=== PATIENT | male | born 1930 | race Caucasian/White ===

== ENCOUNTER 2020-08-01 10:36 | Emergency (ER) | payer MEDICARE, OTHER ==
[~2020-08-01] VITALS: Ht 185.4 cm; Wt 106.8 kg
[~2020-08-01 10:36] MED LIST: ACET-890 PO; CITA20TA28 PO; DOCU-28 PO; ENOX100S3 SUBCUT; FAMO40TA73 PO; FENO135C3 PO; FINA1TAB11 PO; IBUP100T33 PO; LISI-222 PO; METF500T PO; MONT10TA21 PO; OMEP-84 PO; PIOG30TA2 PO; QUET-1 PO; WARF10TA50 PO
[2020-08-01] MEDS ORDERED: oxyCODONE/APAP 5-325mg tablet PO ONE (10:50)
[2020-08-01] MEDS ORDERED: ketorolac trometh. 30mg/ml inj. IM ONE (10:50)
[2020-08-01 10:51] VITALS: BP 110/61
[2020-08-01] MEDS ORDERED: diazepam 5mg tablet PO ONE (11:50)
--- NOTE | 2020-08-01 12:22 | NUR ---
Pt returned from CT.
--- NOTE | 2020-08-01 12:38 | NUR ---
Spoke with , notified that there are no open ST beds available at this time, could make home health referral
[2020-08-01 13:16] LABS: EOSINOPHILS # (AUTO) 0.1 X10'3 (0-0.9); LYMPHOCYTES # (AUTO) 0.7 X10'3 (1.1-4.8)
[2020-08-01 13:18] LABS: BASOPHILS % (AUTO) 0.7 % (0-1); EOSINOPHILS % (AUTO) 1.3 % (0-6); HEMATOCRIT 38.5 % (42.0-52.0); HEMOGLOBIN 12.9 g/dl (14.0-17.9); LYMPHOCYTES % (AUTO) 11.3 % (21-51); MEAN CORPUSCULAR HEMOGLOBIN 30.6 PG (27.0-31.0); MEAN CORPUSCULAR HGB CONC 33.5 g/dL (33.0-36.5); MEAN CORPUSCULAR VOLUME 91.4 FL (78-98); MEAN PLATELET VOLUME 8.7 FL (7.4-10.4); MONOCYTES # (AUTO) 0.6 X10'3 (0-0.9); MONOCYTES % (AUTO) 9.2 % (2-12); NEUTROPHILS # (AUTO) 4.8 X10'3 (1.8-7.7); NEUTROPHILS % (AUTO) 77.5 % (42-75); PLATELET COUNT 142 X10'3 (140-440); RED BLOOD COUNT 4.22 X10'6 (4.70-6.10); RED CELL DISTRIBUTION WIDTH 14.2 % (11.5-14.5); WHITE BLOOD COUNT 6.2 X10'3 (4.5-11.0)
[2020-08-01 13:25] LABS: ALBUMIN 3.5 G/DL (3.4-5.0); ANION GAP 8 (8-16); BLOOD UREA NITROGEN 30 MG/DL (7-18); BUN/CREATININE RATIO 21.4 (5.4-32.0); CHLORIDE 106 MMOL/L (99-107); GLUCOSE 127 MG/DL (70-104); POTASSIUM 4.4 MMOL/L (3.5-5.1); SODIUM 141 MMOL/L (135-145); TOTAL CARBON DIOXIDE 27.4 MMOL/L (24-32); eGFR 48 ML/MIN
--- NOTE | 2020-08-01 14:08 | NUR ---
Spoke with caregiver Liberty, states that yesterday patient was unable to get up or stand and that every few years this happens that patient back goes out, states that patient did not have fall, she is his day time caregiver and also has a night time caregiver, states that patient is large and she is unable to move him, and took three paramedics to move him for transport, explained that at this time there are no [facility] beds available and home health can be ordered, explained that patient has 4 steps and if patient can not walk then she can not get him up those steps, noted patient had Toradol injection, spoke with primary nurse, states that patient is unable to pass mobility screening and can not sit up in bed, page sent to PT for bedside eval
[2020-08-01] MEDS ORDERED: OXYC-145 PO (14:29)
--- NOTE | 2020-08-01 14:49 | NUR ---
Pt able to stand and walk with walker without assistance. Pt feels he is able to go home.
[2020-08-01 15:13] LABS: CLARITY,URINE CLEAR (Clear); COLOR,URINE YELLOW (Yellow); GLUCOSE, URINE NEGATIVE (Neg); KETONES,URINE TRACE mg/dl (Neg); LEUKOCYTE ESTERASE ,URINE NEGATIVE (Neg); NITRITES, URINE NEGATIVE (Neg); OCCULT BLOOD,URINE NEGATIVE (Neg); PH,URINE 5.5 (4.8-8.0); PROTEIN,URINE NEGATIVE (Neg); UROBILINOGEN,URINE 0.2 E.U/dL (0.2-1.0)
[2020-08-01 15:16] LABS: UA COLLECTION TYPE URINAL
== END 2020-08-01 14:50 | disposition home or self-care (01) ==
LOC: ER 10:37
DX: G89.29 Other chronic pain (principal); M54.5 Low back pain; E11.9 Type 2 diabetes mellitus without complications; Z79.899 Other long term (current) drug therapy
CPT/HCPCS: 36415; 72131; 80048; 81003; 85025; 96372; 99284; J1885

== ENCOUNTER 2020-08-11 15:43 | Inpatient (IN) | payer MEDICARE, OTHER ==
[~2020-08-11] VITALS: Ht 185.4 cm; Wt 106.8 kg
[~2020-08-11 15:43] MED LIST changes: +OXYC-145 PO
[2020-08-11] MEDS ORDERED: normal saline 1000ML IV soln IVB ONE (16:40)
[2020-08-11] MEDS ORDERED: ondansetron/PF 4mg/2ml inj IV ONE (16:40)
[2020-08-11] MEDS ORDERED: morphine 4 MG/ML inj SYRINge IV PRN (16:40)
[2020-08-11 17:35] LABS: BASOPHILS % (AUTO) 0.7 % (0-1); EOSINOPHILS # (AUTO) 0.2 X10'3 (0-0.9); EOSINOPHILS % (AUTO) 2.1 % (0-6); HEMATOCRIT 42.5 % (42.0-52.0); LYMPHOCYTES # (AUTO) 0.9 X10'3 (1.1-4.8); LYMPHOCYTES % (AUTO) 11.7 % (21-51); MEAN CORPUSCULAR HEMOGLOBIN 30.5 PG (27.0-31.0); MEAN CORPUSCULAR HGB CONC 32.9 g/dL (33.0-36.5); MEAN CORPUSCULAR VOLUME 92.7 FL (78-98); MEAN PLATELET VOLUME 8.9 FL (7.4-10.4); MONOCYTES # (AUTO) 0.6 X10'3 (0-0.9); MONOCYTES % (AUTO) 8.2 % (2-12); NEUTROPHILS # (AUTO) 5.7 X10'3 (1.8-7.7); NEUTROPHILS % (AUTO) 77.3 % (42-75); PLATELET COUNT 166 X10'3 (140-440); RED BLOOD COUNT 4.59 X10'6 (4.70-6.10); RED CELL DISTRIBUTION WIDTH 14.6 % (11.5-14.5); WHITE BLOOD COUNT 7.4 X10'3 (4.5-11.0)
--- NOTE | 2020-08-11 17:47 | NUR ---
to ct scan via gurney in stable condition.
[2020-08-11 17:50] LABS: ALANINE AMINOTRANSFERASE 26 U/L (12-78); ALBUMIN 3.8 G/DL (3.4-5.0); ALBUMIN/GLOBULIN RATIO 1.1 (1.1-1.5); ALKALINE PHOSPHATASE 86 IU/L (46-116); ANION GAP 13 (8-16); ASPARTATE AMINO TRANSFERASE 30 U/L (10-37); BILIRUBIN,TOTAL 0.4 MG/DL (0.1-1.0); BLOOD UREA NITROGEN 60 MG/DL (7-18); BUN/CREATININE RATIO 34.7 (5.4-32.0); CALCIUM 9.2 MG/DL (8.5-10.1); CHLORIDE 110 MMOL/L (99-107); CREATININE 1.73 MG/DL (0.60-1.10); GLUCOSE 192 MG/DL (70-104); POTASSIUM 4.8 MMOL/L (3.5-5.1); SODIUM 145 MMOL/L (135-145); TOTAL CARBON DIOXIDE 21.8 MMOL/L (24-32); TOTAL PROTEIN 7.3 G/DL (6.4-8.2); eGFR 38 ML/MIN
[2020-08-11] MEDS ORDERED: methylnaltrexone br 12mg/0.6ml inj***SubQ only SQ ONE (18:25)
[2020-08-11] MEDS ORDERED: morphine 2 MG/ML inj. syringe IV ONE (18:30)
[2020-08-11 19:23] LABS: CLARITY,URINE CLEAR (Clear); COLOR,URINE YELLOW (Yellow); GLUCOSE, URINE NEGATIVE (Neg); KETONES,URINE 15 mg/dl (Neg); LEUKOCYTE ESTERASE ,URINE NEGATIVE (Neg); NITRITES, URINE NEGATIVE (Neg); OCCULT BLOOD,URINE NEGATIVE (Neg); PH,URINE 5.5 (4.8-8.0); PROTEIN,URINE NEGATIVE (Neg); UROBILINOGEN,URINE 0.2 E.U/dL (0.2-1.0)
[2020-08-11 19:25] LABS: UA COLLECTION TYPE CLN CATCH MIDSTREAM
--- NOTE | 2020-08-11 19:56 | NUR ---
Pt refused to stand and walk, he reports his legs are not strong enough to stand and walk.
[2020-08-11] MEDS ORDERED: glucagon, human recombinant 1mg kit SUBCUT PRN (20:35)
[2020-08-11] MEDS ORDERED: morphine 2 MG/ML inj. syringe IV PRN ×2 (20:35)
[2020-08-11] MEDS ORDERED: mag hydrox/Alum hydrox/simeth 30ml oral suspension PO PRN (20:35)
[2020-08-11] MEDS ORDERED: dextrose ORAL solution 15 GM/59 ML bottle PO PRN (20:35)
[2020-08-11] MEDS ORDERED: ondansetron/PF 4mg/2ml inj IV PRN (20:35)
[2020-08-11] MEDS ORDERED: MESSAGE TO PHARMACY PO ONE (20:35)
[2020-08-11] MEDS ORDERED: acetaminophen 325mg tablet PO PRN (20:35)
[2020-08-11] MEDS ORDERED: dextrose 50%-water 50ml dispensing syringe IV PRN ×2 (20:35)
--- NOTE | 2020-08-11 21:27 | NUR ---
Pt's daughter, next of kin phoned and left her number where she can be reached. Addendum: 08/11/20 at 7 by CHRISTINA Dara's number is [phone].
[2020-08-11 21:37] LABS: HEMOGLOBIN A1C 7.2 % (4.5-6.2)
[2020-08-11] MEDS ORDERED: HUM7525 SQ (22:12)
[2020-08-11] MEDS ORDERED: ALTERIL PO (22:12)
[2020-08-11] MEDS ORDERED: APIX2.5T PO (22:12)
[2020-08-11] MEDS ORDERED: ATEN1TAB4 PO (22:12)
[2020-08-11] MEDS ORDERED: FINA5TAB11 PO (22:12)
[2020-08-11] MEDS ORDERED: AMLO2.5T2 PO (22:12)
[2020-08-11] MEDS ORDERED: ATOR40TA PO (22:12)
[2020-08-11] MEDS ORDERED: CHOL400T57 PO (22:12)
[2020-08-11] MEDS ORDERED: FLO0.4C PO (22:12)
[2020-08-11] MEDS ORDERED: OXYC-145 PO (22:12)
[2020-08-11] MEDS ORDERED: CYAN250010 PO (22:12)
[2020-08-11] MEDS ORDERED: INSU100I25 SQ (22:12)
[2020-08-11] MEDS ORDERED: CLOP75TA15 PO (22:12)
[2020-08-11] MEDS ORDERED: LOSA25TA96 PO (22:12)
[2020-08-11] MEDS: insulin glargine (Lantus) pen - multi-dose SQ SCH (22:41)
[2020-08-12 03:33] VITALS: BP 141/92
--- NOTE | 2020-08-12 06:27 | NUR ---
Problems reprioritized. Patient report given, questions answered & plan of care reviewed with Alea PENA.
--- NOTE | 2020-08-12 06:54 | NUR ---
Patient in room [facility] 358. I have received report from Kristyn PENA and had the opportunity to ask questions and assume patient care.
[2020-08-12 07:00] VITALS: BP 149/86
[2020-08-12] MEDS: cyanocobalamin 500mcg tablet PO SCH ×2 (08:00→09:48)
[2020-08-12] MEDS: amLODIPine 2.5mg tablet PO SCH (09:48)
[2020-08-12] MEDS: tamsulosin 0.4mg capsule PO SCH ×2 (09:49→19:17)
[2020-08-12] MEDS: losartan 50mg tablet PO SCH (09:49)
[2020-08-12] MEDS: chlorthalidone 25mg tablet PO SCH (09:49)
[2020-08-12] MEDS: clopidogrel 75mg tablet PO SCH (09:50)
[2020-08-12] MEDS: atorvastatin 20mg tablet PO SCH (09:50)
[2020-08-12] MEDS: apixaban 2.5mg tablet PO SCH ×2 (09:50→19:17)
[2020-08-12] MEDS: atenolol 50mg tablet PO SCH (09:51)
[2020-08-12] MEDS: docusate sod 100mg capsule PO SCH ×2 (09:52→19:17)
[2020-08-12] MEDS: finasteride 5mg tablet PO SCH (09:53)
--- NOTE | 2020-08-12 10:00 | NUR ---
Pt confused, reoriented and reeducated with brief understanding, resistive to care and assessment, impulsive to get out of bed, refused Vit B12, MD aware. Will continue to monitor.
[2020-08-12] MEDS: insulin Lispro (HumaLOG) vial - multi-dose SQ SCH ×4 (10:06→21:23)
[2020-08-12] MEDS: magnesium hydroxide 30ml (MOM) UD suspension PO PRN (10:11)
[2020-08-12] MEDS: HYDROcodone/acetaminophen 5mg/325mg tablet PO PRN ×3 (10:12→23:26)
[2020-08-12 12:00] VITALS: BP 131/63
[2020-08-12 13:05] LABS: ALBUMIN 3.7 G/DL (3.4-5.0); ANION GAP 7 (8-16); BILIRUBIN,TOTAL 0.5 MG/DL (0.1-1.0); BLOOD UREA NITROGEN 46 MG/DL (7-18); BUN/CREATININE RATIO 32.2 (5.4-32.0); CALCIUM 9.2 MG/DL (8.5-10.1); CHLORIDE 111 MMOL/L (99-107); CREATININE 1.43 MG/DL (0.60-1.10); GLUCOSE 238 MG/DL (70-104); SODIUM 146 MMOL/L (135-145); TOTAL CARBON DIOXIDE 27.9 MMOL/L (24-32); TOTAL PROTEIN 7.1 G/DL (6.4-8.2); eGFR 47 ML/MIN
[2020-08-12 13:06] LABS: ALANINE AMINOTRANSFERASE 26 U/L (12-78); ALBUMIN/GLOBULIN RATIO 1.1 (1.1-1.5); ALKALINE PHOSPHATASE 86 IU/L (46-116); ASPARTATE AMINO TRANSFERASE 31 U/L (10-37)
[2020-08-12 13:07] LABS: BASOPHILS % (AUTO) 0.7 % (0-1); EOSINOPHILS # (AUTO) 0.1 X10'3 (0-0.9); EOSINOPHILS % (AUTO) 1.1 % (0-6); HEMATOCRIT 42.3 % (42.0-52.0); HEMOGLOBIN 13.9 g/dl (14.0-17.9); LYMPHOCYTES # (AUTO) 0.5 X10'3 (1.1-4.8); LYMPHOCYTES % (AUTO) 7.8 % (21-51); MEAN CORPUSCULAR HGB CONC 32.8 g/dL (33.0-36.5); MEAN CORPUSCULAR VOLUME 91.3 FL (78-98); MEAN PLATELET VOLUME 8.5 FL (7.4-10.4); MONOCYTES # (AUTO) 0.6 X10'3 (0-0.9); MONOCYTES % (AUTO) 8.4 % (2-12); NEUTROPHILS # (AUTO) 5.7 X10'3 (1.8-7.7); PLATELET COUNT 177 X10'3 (140-440); RED BLOOD COUNT 4.63 X10'6 (4.70-6.10); RED CELL DISTRIBUTION WIDTH 14.7 % (11.5-14.5); WHITE BLOOD COUNT 6.9 X10'3 (4.5-11.0)
--- NOTE | 2020-08-12 14:31 | NUR ---
DM Consult: A1C 7.2 appropriate given geriatric age no need for DM ed at this time. To f/u 08/16 for initial assessment. Addendum: 08/12/20 at [address] Amended: Links added.
--- NOTE | 2020-08-12 17:45 | NUR ---
Spoke with daughter aDra per phone call with pt's permission, dtr states pt had Cardiac stents placed approx Apr 2020 at [facility].
[2020-08-12 18:00] VITALS: BP 120/77
--- NOTE | 2020-08-12 18:31 | NUR ---
Problems reprioritized. Patient report given, questions answered & plan of care reviewed with Kristyn PENA.
--- NOTE | 2020-08-12 18:32 | NUR ---
Patient in room [facility] 358. I have received report from Alea PENA and had the opportunity to ask questions and assume patient care.
--- NOTE | 2020-08-12 18:39 | NUR ---
PAGER ID: [phone] MESSAGE: re: [id number], Carlos Teixeira Making sure you are aware, spoke with daughter Dara per phone call and she states pt has cardiac stents, placed approx. Apr 2020 at [facility]. Thank you, [facility] [phone]
[2020-08-12] MEDS: insulin glargine (Lantus) pen - multi-dose SQ SCH (21:21)
[2020-08-13] VITALS: BP 111/60
[2020-08-13 06:53] LABS: BASOPHILS % (AUTO) 0.4 % (0-1); EOSINOPHILS # (AUTO) 0.1 X10'3 (0-0.9); EOSINOPHILS % (AUTO) 1.1 % (0-6); HEMATOCRIT 39.4 % (42.0-52.0); HEMOGLOBIN 13.1 g/dl (14.0-17.9); LYMPHOCYTES # (AUTO) 0.7 X10'3 (1.1-4.8); LYMPHOCYTES % (AUTO) 7.9 % (21-51); MEAN CORPUSCULAR HEMOGLOBIN 30.9 PG (27.0-31.0); MEAN CORPUSCULAR HGB CONC 33.4 g/dL (33.0-36.5); MEAN CORPUSCULAR VOLUME 92.6 FL (78-98); MONOCYTES # (AUTO) 0.7 X10'3 (0-0.9); MONOCYTES % (AUTO) 7.1 % (2-12); NEUTROPHILS # (AUTO) 7.9 X10'3 (1.8-7.7); NEUTROPHILS % (AUTO) 83.5 % (42-75); PLATELET COUNT 161 X10'3 (140-440); RED BLOOD COUNT 4.25 X10'6 (4.70-6.10); WHITE BLOOD COUNT 9.4 X10'3 (4.5-11.0)
[2020-08-13 07:00] VITALS: BP 116/64
--- NOTE | 2020-08-13 07:06 | NUR ---
Patient in room [facility] 358. I have received report from Kristyn PENA and had the opportunity to ask questions and assume patient care.
[2020-08-13 07:08] LABS: ALBUMIN 3.4 G/DL (3.4-5.0); ANION GAP 9 (8-16); BILIRUBIN,TOTAL 0.4 MG/DL (0.1-1.0); BLOOD UREA NITROGEN 54 MG/DL (7-18); BUN/CREATININE RATIO 33.1 (5.4-32.0); CALCIUM 8.9 MG/DL (8.5-10.1); CHLORIDE 110 MMOL/L (99-107); CREATININE 1.63 MG/DL (0.60-1.10); GLUCOSE 239 MG/DL (70-104); POTASSIUM 4.4 MMOL/L (3.5-5.1); SODIUM 143 MMOL/L (135-145); TOTAL PROTEIN 6.7 G/DL (6.4-8.2); eGFR 40 ML/MIN
[2020-08-13 07:09] LABS: ALANINE AMINOTRANSFERASE 25 U/L (12-78); ALKALINE PHOSPHATASE 82 IU/L (46-116); ASPARTATE AMINO TRANSFERASE 28 U/L (10-37)
[2020-08-13] MEDS: atorvastatin 20mg tablet PO SCH (08:38)
[2020-08-13] MEDS: tamsulosin 0.4mg capsule PO SCH ×2 (08:38→22:32)
[2020-08-13] MEDS: clopidogrel 75mg tablet PO SCH (08:38)
[2020-08-13] MEDS: atenolol 50mg tablet PO SCH (08:39)
[2020-08-13] MEDS: chlorthalidone 25mg tablet PO SCH (08:39)
[2020-08-13] MEDS: amLODIPine 2.5mg tablet PO SCH (08:39)
[2020-08-13] MEDS: cyanocobalamin 500mcg tablet PO SCH (08:39)
[2020-08-13] MEDS: apixaban 2.5mg tablet PO SCH ×2 (08:39→22:32)
[2020-08-13] MEDS: docusate sod 100mg capsule PO SCH ×2 (08:40→22:32)
[2020-08-13] MEDS: finasteride 5mg tablet PO SCH (08:40)
[2020-08-13] MEDS: HYDROcodone/acetaminophen 10/325mg tab PO PRN (08:40)
[2020-08-13] MEDS: losartan 50mg tablet PO SCH (08:41)
[2020-08-13] MEDS: insulin Lispro (HumaLOG) vial - multi-dose SQ SCH ×2 (09:27→20:38)
[2020-08-13 11:00] VITALS: BP 67/41
[2020-08-13 11:15] VITALS: BP 90/60
--- NOTE | 2020-08-13 11:51 | NUR ---
PAGER ID: [phone] MESSAGE: [facility] [id number] Re: Puneet HernandezA BP was 69/28 HR 83 automatic , manual BP 90/60 please call Addendum: 08/13/20 at 1202 by Belle Marvin RN Received orders to DC Chlorthalidone medication
--- NOTE | 2020-08-13 16:38 | NUR ---
Tried to call daughter Dara twice while patient was sitting up in the chair. Dara does not have voice mail set up unable to leave message. Called [phone]
[2020-08-13] MEDS: HYDROcodone/acetaminophen 5mg/325mg tablet PO PRN (16:53)
[2020-08-13 17:03] VITALS: BP 135/87
--- NOTE | 2020-08-13 18:59 | NUR ---
Problems reprioritized. Patient report given, questions answered & plan of care reviewed with Cee Mike RN.
--- NOTE | 2020-08-13 19:00 | NUR ---
Patient in room [facility] 358. I have received report from FRANDY PENA and had the opportunity to ask questions and assume patient care.
[2020-08-13 20:00] VITALS: BP 125/83
[2020-08-13] MEDS: insulin glargine (Lantus) pen - multi-dose SQ SCH (22:33)
[2020-08-14] VITALS: BP 129/81
[2020-08-14 06:30] VITALS: BP 143/65
--- NOTE | 2020-08-14 06:30 | NUR ---
Problems reprioritized. Patient report given, questions answered & plan of care reviewed with FLOR RN.
--- NOTE | 2020-08-14 06:40 | NUR ---
Patient in room [facility] 358. I have received report from Cee Mike RN and had the opportunity to ask questions and assume patient care.
[2020-08-14 07:05] LABS: BASOPHILS % (AUTO) 0.4 % (0-1); EOSINOPHILS # (AUTO) 0.2 X10'3 (0-0.9); EOSINOPHILS % (AUTO) 2.3 % (0-6); HEMATOCRIT 41.1 % (42.0-52.0); HEMOGLOBIN 13.9 g/dl (14.0-17.9); LYMPHOCYTES # (AUTO) 0.8 X10'3 (1.1-4.8); LYMPHOCYTES % (AUTO) 10.3 % (21-51); MEAN CORPUSCULAR HEMOGLOBIN 30.9 PG (27.0-31.0); MEAN CORPUSCULAR HGB CONC 33.8 g/dL (33.0-36.5); MEAN CORPUSCULAR VOLUME 91.5 FL (78-98); MEAN PLATELET VOLUME 8.8 FL (7.4-10.4); MONOCYTES # (AUTO) 0.6 X10'3 (0-0.9); MONOCYTES % (AUTO) 7.4 % (2-12); NEUTROPHILS # (AUTO) 6.1 X10'3 (1.8-7.7); NEUTROPHILS % (AUTO) 79.6 % (42-75); PLATELET COUNT 173 X10'3 (140-440); RED BLOOD COUNT 4.49 X10'6 (4.70-6.10); RED CELL DISTRIBUTION WIDTH 14.7 % (11.5-14.5); WHITE BLOOD COUNT 7.7 X10'3 (4.5-11.0)
[2020-08-14 07:14] LABS: ALANINE AMINOTRANSFERASE 28 U/L (12-78); ALBUMIN 3.5 G/DL (3.4-5.0); ALBUMIN/GLOBULIN RATIO 1.1 (1.1-1.5); ALKALINE PHOSPHATASE 79 IU/L (46-116); ANION GAP 11 (8-16); ASPARTATE AMINO TRANSFERASE 34 U/L (10-37); BILIRUBIN,TOTAL 0.5 MG/DL (0.1-1.0); BLOOD UREA NITROGEN 55 MG/DL (7-18); BUN/CREATININE RATIO 36.7 (5.4-32.0); CALCIUM 9.2 MG/DL (8.5-10.1); CHLORIDE 110 MMOL/L (99-107); GLUCOSE 135 MG/DL (70-104); POTASSIUM 4.4 MMOL/L (3.5-5.1); SODIUM 146 MMOL/L (135-145); TOTAL CARBON DIOXIDE 24.9 MMOL/L (24-32); TOTAL PROTEIN 6.8 G/DL (6.4-8.2); eGFR 44 ML/MIN
[2020-08-14] MEDS: atorvastatin 20mg tablet PO SCH (10:39)
[2020-08-14] MEDS: losartan 50mg tablet PO SCH (10:40)
[2020-08-14] MEDS: atenolol 50mg tablet PO SCH (10:40)
[2020-08-14] MEDS: finasteride 5mg tablet PO SCH (10:40)
[2020-08-14] MEDS: docusate sod 100mg capsule PO SCH ×2 (10:40→20:13)
[2020-08-14] MEDS: tamsulosin 0.4mg capsule PO SCH ×2 (10:41→20:13)
[2020-08-14] MEDS: cyanocobalamin 500mcg tablet PO SCH (10:41)
[2020-08-14] MEDS: amLODIPine 2.5mg tablet PO SCH (10:41)
[2020-08-14] MEDS: apixaban 2.5mg tablet PO SCH ×2 (10:41→20:13)
[2020-08-14] MEDS: clopidogrel 75mg tablet PO SCH (10:41)
[2020-08-14] MEDS: insulin Lispro (HumaLOG) vial - multi-dose SQ SCH ×2 (10:44→13:08)
[2020-08-14 11:00] VITALS: BP 126/65
[2020-08-14] MEDS: HYDROcodone/acetaminophen 10/325mg tab PO PRN ×2 (12:38→20:14)
--- NOTE | 2020-08-14 18:00 | NUR ---
Received phone call from pt's daughter, Dara, whom expressed several concerns about pt's mentation (Pt does not have hx of dementia/confusion/disorientation), back pain/prior treatment for back pain which was on a disc that she states they brought here & had a copy made for MD review & pt's record. Pt requested call from . Dr Warner notified who called back to notify nursing that he was unable to get a hold of Dara.
--- NOTE | 2020-08-14 18:30 | NUR ---
Problems reprioritized. Patient report given, questions answered & plan of care reviewed with Cee Mkie RN.
--- NOTE | 2020-08-14 18:40 | NUR ---
Patient in room [facility] 358. I have received report from FLOR PENA and had the opportunity to ask questions and assume patient care.
[2020-08-14 20:00] VITALS: BP 140/59
[2020-08-14] MEDS: insulin glargine (Lantus) pen - multi-dose SQ SCH (21:53)
[2020-08-15] VITALS (12 sets, daily range): BP systolic 103–169; BP diastolic 32–77
--- NOTE | 2020-08-15 06:20 | NUR ---
Patient in room [facility] 358. I have received report from Cee Mike RN and had the opportunity to ask questions and assume patient care.
--- NOTE | 2020-08-15 06:30 | NUR ---
Problems reprioritized. Patient report given, questions answered & plan of care reviewed with FLOR RN.
--- NOTE | 2020-08-15 08:13 | NUR ---
Sound Effects Manager notified of MD ordered sitter. Sound Effects Manager states no sitter available.
[2020-08-15 08:24] LABS: BASOPHILS % (AUTO) 0.2 % (0-1); EOSINOPHILS # (AUTO) 0.1 X10'3 (0-0.9); EOSINOPHILS % (AUTO) 0.7 % (0-6); HEMATOCRIT 43.2 % (42.0-52.0); HEMOGLOBIN 14.3 g/dl (14.0-17.9); LYMPHOCYTES # (AUTO) 0.6 X10'3 (1.1-4.8); LYMPHOCYTES % (AUTO) 6.6 % (21-51); MEAN CORPUSCULAR HEMOGLOBIN 30.8 PG (27.0-31.0); MEAN CORPUSCULAR HGB CONC 33.1 g/dL (33.0-36.5); MEAN PLATELET VOLUME 9.4 FL (7.4-10.4); MONOCYTES # (AUTO) 0.6 X10'3 (0-0.9); MONOCYTES % (AUTO) 6.1 % (2-12); NEUTROPHILS # (AUTO) 7.9 X10'3 (1.8-7.7); NEUTROPHILS % (AUTO) 86.4 % (42-75); PLATELET COUNT 162 X10'3 (140-440); RED BLOOD COUNT 4.65 X10'6 (4.70-6.10); RED CELL DISTRIBUTION WIDTH 14.8 % (11.5-14.5); WHITE BLOOD COUNT 9.2 X10'3 (4.5-11.0)
[2020-08-15 08:27] LABS: ALANINE AMINOTRANSFERASE 28 U/L (12-78); ALBUMIN 3.6 G/DL (3.4-5.0); ALKALINE PHOSPHATASE 87 IU/L (46-116); ANION GAP 10 (8-16); ASPARTATE AMINO TRANSFERASE 27 U/L (10-37); BILIRUBIN,TOTAL 0.5 MG/DL (0.1-1.0); BLOOD UREA NITROGEN 63 MG/DL (7-18); BUN/CREATININE RATIO 35.2 (5.4-32.0); CHLORIDE 107 MMOL/L (99-107); CREATININE 1.79 MG/DL (0.60-1.10); GLUCOSE 224 MG/DL (70-104); POTASSIUM 4.9 MMOL/L (3.5-5.1); SODIUM 141 MMOL/L (135-145); TOTAL CARBON DIOXIDE 24.3 MMOL/L (24-32); TOTAL PROTEIN 7.2 G/DL (6.4-8.2); eGFR 36 ML/MIN
[2020-08-15] MEDS: atenolol 50mg tablet PO SCH (10:14)
[2020-08-15] MEDS: apixaban 2.5mg tablet PO SCH ×2 (10:14→21:59)
[2020-08-15] MEDS: docusate sod 100mg capsule PO SCH ×2 (10:14→21:59)
[2020-08-15] MEDS: amLODIPine 2.5mg tablet PO SCH (10:14)
[2020-08-15] MEDS: losartan 50mg tablet PO SCH (10:14)
[2020-08-15] MEDS: HYDROcodone/acetaminophen 10/325mg tab PO PRN (10:15)
[2020-08-15] MEDS: atorvastatin 20mg tablet PO SCH (10:15)
[2020-08-15] MEDS: tamsulosin 0.4mg capsule PO SCH ×2 (10:15→21:58)
[2020-08-15] MEDS: finasteride 5mg tablet PO SCH (10:15)
[2020-08-15] MEDS: cyanocobalamin 500mcg tablet PO SCH (10:15)
[2020-08-15] MEDS: clopidogrel 75mg tablet PO SCH (10:15)
[2020-08-15] MEDS: insulin Lispro (HumaLOG) vial - multi-dose SQ SCH ×2 (10:24→13:51)
[2020-08-15] MEDS: LIDOcaine 5% patch TP SCH (13:39)
[2020-08-15 13:56] LABS: AMMONIA < 10 UMOL/L (11-32)
--- NOTE | 2020-08-15 19:00 | NUR ---
Problems reprioritized. Patient report given, questions answered & plan of care reviewed with Yamilet RN.
--- NOTE | 2020-08-15 19:30 | NUR ---
moans when repositioned; unable to state number of pain level or describe pain; lidoderm patch on to back; calm after repositioned for comfort Addendum: 08/16/20 at 0122 by Carol Lopez RN Amended: Links added.
[2020-08-15] MEDS: insulin glargine (Lantus) pen - multi-dose SQ SCH (22:09)
[2020-08-16] VITALS: BP 129/46
--- NOTE | 2020-08-16 06:00 | NUR ---
Patient in room [facility] 358. I have received report from JEAN Woodard and had the opportunity to ask questions and assume patient care.
[2020-08-16 06:06] LABS: BASOPHILS % (AUTO) 0.4 % (0-1); EOSINOPHILS # (AUTO) 0.1 X10'3 (0-0.9); EOSINOPHILS % (AUTO) 1.3 % (0-6); HEMATOCRIT 41.1 % (42.0-52.0); HEMOGLOBIN 13.8 g/dl (14.0-17.9); LYMPHOCYTES # (AUTO) 0.7 X10'3 (1.1-4.8); LYMPHOCYTES % (AUTO) 8.6 % (21-51); MEAN CORPUSCULAR HEMOGLOBIN 30.9 PG (27.0-31.0); MEAN CORPUSCULAR HGB CONC 33.6 g/dL (33.0-36.5); MEAN PLATELET VOLUME 9.1 FL (7.4-10.4); MONOCYTES # (AUTO) 0.6 X10'3 (0-0.9); MONOCYTES % (AUTO) 7.8 % (2-12); NEUTROPHILS # (AUTO) 6.4 X10'3 (1.8-7.7); NEUTROPHILS % (AUTO) 81.9 % (42-75); PLATELET COUNT 172 X10'3 (140-440); RED BLOOD COUNT 4.46 X10'6 (4.70-6.10); RED CELL DISTRIBUTION WIDTH 14.6 % (11.5-14.5); WHITE BLOOD COUNT 7.8 X10'3 (4.5-11.0)
[2020-08-16 06:25] LABS: ALANINE AMINOTRANSFERASE 28 U/L (12-78); ALBUMIN 3.4 G/DL (3.4-5.0); ALKALINE PHOSPHATASE 82 IU/L (46-116); ANION GAP 9 (8-16); ASPARTATE AMINO TRANSFERASE 30 U/L (10-37); BILIRUBIN,TOTAL 0.4 MG/DL (0.1-1.0); BLOOD UREA NITROGEN 63 MG/DL (7-18); BUN/CREATININE RATIO 39.4 (5.4-32.0); CALCIUM 8.9 MG/DL (8.5-10.1); CHLORIDE 107 MMOL/L (99-107); GLUCOSE 223 MG/DL (70-104); POTASSIUM 4.2 MMOL/L (3.5-5.1); SODIUM 141 MMOL/L (135-145); TOTAL CARBON DIOXIDE 24.7 MMOL/L (24-32); TOTAL PROTEIN 6.9 G/DL (6.4-8.2); eGFR 41 ML/MIN
[2020-08-16 07:00] VITALS: BP 131/47
[2020-08-16] MEDS: amLODIPine 2.5mg tablet PO SCH (08:00)
[2020-08-16] MEDS: tamsulosin 0.4mg capsule PO SCH ×2 (08:56→20:09)
[2020-08-16] MEDS: atenolol 50mg tablet PO SCH (08:58)
[2020-08-16] MEDS: clopidogrel 75mg tablet PO SCH (08:58)
[2020-08-16] MEDS: finasteride 5mg tablet PO SCH (08:58)
[2020-08-16] MEDS: losartan 50mg tablet PO SCH (08:58)
[2020-08-16] MEDS: apixaban 2.5mg tablet PO SCH ×2 (08:58→20:09)
[2020-08-16] MEDS: atorvastatin 20mg tablet PO SCH (08:58)
[2020-08-16] MEDS: docusate sod 100mg capsule PO SCH ×2 (08:58→20:09)
[2020-08-16] MEDS: cyanocobalamin 500mcg tablet PO SCH (08:59)
[2020-08-16] MEDS: LIDOcaine 5% patch TP SCH (08:59)
[2020-08-16] MEDS: insulin Lispro (HumaLOG) vial - multi-dose SQ SCH ×3 (09:15→19:42)
[2020-08-16 11:00] VITALS: BP 95/48
[2020-08-16] MEDS: bisacodyl 10mg suppository rectal RC ONE ×2 (11:25→12:15)
[2020-08-16] MEDS ORDERED: bisacodyl 10mg suppository rectal RC STA (12:18)
--- NOTE | 2020-08-16 12:20 | NUR ---
Suppository broke prior to placement, had to reorder to pull.
--- NOTE | 2020-08-16 14:35 | NUR ---
Initial: Patient had KUB done today, revealed moderate to significant colonic constipation, no evidence of bowel obstruction. Pt received dulcolax. Last BM 08/12. Pt with some confusion, possible r/t morphine, morphine was stopped. Admitted with low back pain, acute renal failure, per MD note pt with metabolic encephalopathy. A/O x1. Pt appears to eat well for breakfast at times eating 75-100% however refusing most other meals, average intake range 25-49%, not meeting needs. Poor appetite likely r/t to both confusion and to constipation. Given that pt eats best at breakfast recommend sending double eggs and cottage cheese, d/w dietary. Recommend: 1. continue carb controlled diet 2. send double eggs and cottage cheese with breakfast 3. routine bowel care 4. weight per rx Addendum: 08/16/20 at [address] Amended: Links added.
--- NOTE | 2020-08-16 18:30 | NUR ---
Problems reprioritized. Patient report given, questions answered & plan of care reviewed with JEAN Davenport.
--- NOTE | 2020-08-16 18:34 | NUR ---
Patient in room [facility] 358. I have received report from DORIS PENA and had the opportunity to ask questions and assume patient care. Addendum: 08/16/20 at 1834 by Ethel Montoya RN Amended: Links added.
[2020-08-16 19:00] VITALS: BP 134/59
[2020-08-16] MEDS ORDERED: methylnaltrexone br 12mg/0.6ml inj***SubQ only SQ ONE (20:00)
[2020-08-16] MEDS: insulin glargine (Lantus) pen - multi-dose SQ SCH (21:18)
--- NOTE | 2020-08-16 21:44 | NUR ---
relistor given earlier as ordered and pt inc of stool small to medium amount grainy liquid and skin care done then cream applied pt tolerated fair lidoderm patch removed as well.
--- NOTE | 2020-08-16 22:30 | NUR ---
pt inc of a very large formed stool with grit to it and loose stool as well.
--- NOTE | 2020-08-16 23:00 | NUR ---
pt inc of stool and cleaned up again this time small to medium liquid with grit. tolerated well.
[2020-08-17] VITALS: BP 122/57
--- NOTE | 2020-08-17 01:05 | NUR ---
resting eyes closed without changes.
--- NOTE | 2020-08-17 06:00 | NUR ---
Patient in room [facility] 359. I have received report from JEAN Davenport and had the opportunity to ask questions and assume patient care.
--- NOTE | 2020-08-17 06:05 | NUR ---
Problems reprioritized. Patient report given, questions answered & plan of care reviewed with DORIS PENA. Addendum: 08/17/20 at 0606 by Ethel Montoya RN Amended: Links added.
[2020-08-17 07:00] VITALS: BP 142/65
[2020-08-17 07:42] LABS: BASOPHILS % (AUTO) 0.2 % (0-1); EOSINOPHILS % (AUTO) 0.4 % (0-6); HEMATOCRIT 42.6 % (42.0-52.0); HEMOGLOBIN 14.1 g/dl (14.0-17.9); LYMPHOCYTES # (AUTO) 0.5 X10'3 (1.1-4.8); LYMPHOCYTES % (AUTO) 5.5 % (21-51); MEAN CORPUSCULAR HEMOGLOBIN 30.4 PG (27.0-31.0); MEAN CORPUSCULAR HGB CONC 33.1 g/dL (33.0-36.5); MEAN PLATELET VOLUME 9.7 FL (7.4-10.4); MONOCYTES # (AUTO) 0.8 X10'3 (0-0.9); MONOCYTES % (AUTO) 7.9 % (2-12); NEUTROPHILS # (AUTO) 8.2 X10'3 (1.8-7.7); PLATELET COUNT 170 X10'3 (140-440); RED BLOOD COUNT 4.63 X10'6 (4.70-6.10); RED CELL DISTRIBUTION WIDTH 14.9 % (11.5-14.5); WHITE BLOOD COUNT 9.5 X10'3 (4.5-11.0)
[2020-08-17] MEDS: tamsulosin 0.4mg capsule PO SCH ×2 (07:52→19:58)
[2020-08-17] MEDS: docusate sod 100mg capsule PO SCH ×2 (07:52→19:58)
[2020-08-17] MEDS: LIDOcaine 5% patch TP SCH (07:52)
[2020-08-17] MEDS: amLODIPine 2.5mg tablet PO SCH (07:53)
[2020-08-17] MEDS: cyanocobalamin 500mcg tablet PO SCH (07:54)
[2020-08-17] MEDS: atorvastatin 20mg tablet PO SCH (07:54)
[2020-08-17] MEDS: apixaban 2.5mg tablet PO SCH ×2 (07:54→19:58)
[2020-08-17] MEDS: atenolol 50mg tablet PO SCH (07:55)
[2020-08-17 08:03] LABS: ALANINE AMINOTRANSFERASE 38 U/L (12-78); ALBUMIN 3.2 G/DL (3.4-5.0); ALBUMIN/GLOBULIN RATIO 0.9 (1.1-1.5); ALKALINE PHOSPHATASE 86 IU/L (46-116); ANION GAP 10 (8-16); ASPARTATE AMINO TRANSFERASE 51 U/L (10-37); BILIRUBIN,TOTAL 0.5 MG/DL (0.1-1.0); BLOOD UREA NITROGEN 67 MG/DL (7-18); BUN/CREATININE RATIO 40.9 (5.4-32.0); CALCIUM 9.5 MG/DL (8.5-10.1); CHLORIDE 108 MMOL/L (99-107); CREATININE 1.64 MG/DL (0.60-1.10); GLUCOSE 225 MG/DL (70-104); POTASSIUM 4.4 MMOL/L (3.5-5.1); SODIUM 142 MMOL/L (135-145); TOTAL CARBON DIOXIDE 24.1 MMOL/L (24-32); TOTAL PROTEIN 6.8 G/DL (6.4-8.2); eGFR 40 ML/MIN
[2020-08-17] MEDS: clopidogrel 75mg tablet PO SCH (08:08)
[2020-08-17] MEDS: finasteride 5mg tablet PO SCH (09:07)
[2020-08-17] MEDS: insulin Lispro (HumaLOG) vial - multi-dose SQ SCH ×2 (09:11→13:27)
[2020-08-17] MEDS: losartan 50mg tablet PO SCH (09:58)
[2020-08-17 11:00] VITALS: BP 92/61
--- NOTE | 2020-08-17 17:28 | NUR ---
At 1700 patient began to become agitated and refused blood sugars stating, "Get out of here (to fawn) I'll kill you." "I'm going to shoot you all for invading my home."
--- NOTE | 2020-08-17 18:25 | NUR ---
Received report from JEAN Solorzano. Patient oriented to only self. Slightly agitated and confused. Attempted to reorient patient to person, place, time and events/purpose. Patient stated "I'll have you physically arrested; this is my private home." Sitter at bedside to monitor. Call light and items of frequent use within reach. Will continue to monitor.
--- NOTE | 2020-08-17 18:34 | NUR ---
Problems reprioritized. Patient report given, questions answered & plan of care reviewed with JEAN Gaitan.
--- NOTE | 2020-08-17 18:55 | NUR ---
Patient refused blood sugar check and dinner; will not give insulin for nutritional/correctional as patient is refusing care/treatment. Will try again later and continue to monitor.
[2020-08-17] MEDS: insulin glargine (Lantus) pen - multi-dose SQ SCH (21:00)
--- NOTE | 2020-08-17 21:24 | NUR ---
Patient refused 2100 blood sugar check, so will not administer Lantus. Explained risks involved, patient still refused and wanted me out of the room.
--- NOTE | 2020-08-18 06:12 | NUR ---
Problems reprioritized. Patient report given, questions answered & plan of care reviewed with JEAN Moreland.
--- NOTE | 2020-08-18 06:30 | NUR ---
Patient in room [facility] 359. I have received report from Kandy PENA and had the opportunity to ask questions and assume patient care.
[2020-08-18 08:00] VITALS: BP 147/70
[2020-08-18] MEDS: docusate sod 100mg capsule PO SCH ×2 (10:03→20:37)
[2020-08-18] MEDS: tamsulosin 0.4mg capsule PO SCH ×2 (10:03→20:37)
[2020-08-18] MEDS: losartan 50mg tablet PO SCH (10:04)
[2020-08-18] MEDS: cyanocobalamin 500mcg tablet PO SCH (10:06)
[2020-08-18] MEDS: clopidogrel 75mg tablet PO SCH (10:06)
[2020-08-18] MEDS: apixaban 2.5mg tablet PO SCH ×2 (10:06→20:37)
[2020-08-18] MEDS: atenolol 50mg tablet PO SCH (10:07)
[2020-08-18] MEDS: atorvastatin 20mg tablet PO SCH (10:08)
[2020-08-18] MEDS: amLODIPine 2.5mg tablet PO SCH (10:09)
[2020-08-18] MEDS: finasteride 5mg tablet PO SCH (10:09)
[2020-08-18] MEDS: LIDOcaine 5% patch TP SCH (10:10)
[2020-08-18] MEDS: insulin Lispro (HumaLOG) vial - multi-dose SQ SCH ×3 (10:19→18:58)
[2020-08-18 11:00] VITALS: BP 99/50
--- NOTE | 2020-08-18 16:39 | NUR ---
Reassessment: Informed by RN that pt didn't eat any of the food from his meal trays today. Pt seen at bedside reports he dislikes the food because it's bland. Pt agrees to salsa with breakfast, fruit and Mrs. Dash TID, cottage cheese and yogurt with meals, d/w dietary. Sitter at bedside states she tries to encourage PO intake however pt declines assistance with meals and reports pt not willing to sit up for mealtimes d/t pain, bedside RN informed of this. Pt reports he is able to feed self just fine and agreed to attempt to eat more with RD encouragement. Pt declines ONS at this time. Pt denies difficulty chewing/swallowing. LBM 1/5 following receiving additional bowel care. Will continue to follow closely. Recommend: 1. continue carb controlled diet; encourage PO intake 2. send double eggs and salsa q breakfast; cottage cheese q lunch; yogurt q dinner; fruit and Mrs. Dash TID 3. routine bowel care 4. weight per rx Addendum: 08/18/20 at [address] Amended: Links added.
--- NOTE | 2020-08-18 18:55 | NUR ---
Problems reprioritized. Patient report given, questions answered & plan of care reviewed with Kandy PENA.
[2020-08-18 20:00] VITALS: BP 97/59
[2020-08-18] MEDS: methylnaltrexone br 12mg/0.6ml inj***SubQ only SQ SCH (20:36)
[2020-08-18] MEDS: insulin glargine (Lantus) pen - multi-dose SQ SCH (21:55)
[2020-08-19] VITALS: BP 100/61
--- NOTE | 2020-08-19 06:30 | NUR ---
Patient in room [facility] 359. I have received report from LIAN PENA and had the opportunity to ask questions and assume patient care.
--- NOTE | 2020-08-19 06:33 | NUR ---
Problems reprioritized. Patient report given, questions answered & plan of care reviewed with JEAN Moreland.
--- NOTE | 2020-08-19 06:57 | NUR ---
patient refused to have vitals taken at this time.
[2020-08-19 07:00] VITALS: BP 125/61
[2020-08-19] MEDS: tamsulosin 0.4mg capsule PO SCH ×2 (08:31→20:11)
[2020-08-19] MEDS: apixaban 2.5mg tablet PO SCH ×2 (08:31→20:11)
[2020-08-19] MEDS: docusate sod 100mg capsule PO SCH ×2 (08:32→20:10)
[2020-08-19] MEDS: atenolol 50mg tablet PO SCH (08:32)
[2020-08-19] MEDS: cyanocobalamin 500mcg tablet PO SCH (08:33)
[2020-08-19] MEDS: clopidogrel 75mg tablet PO SCH (08:33)
[2020-08-19] MEDS: atorvastatin 20mg tablet PO SCH (08:33)
[2020-08-19] MEDS: finasteride 5mg tablet PO SCH (08:34)
[2020-08-19] MEDS: losartan 50mg tablet PO SCH (08:34)
[2020-08-19] MEDS: amLODIPine 2.5mg tablet PO SCH (08:34)
[2020-08-19] MEDS: LIDOcaine 5% patch TP SCH (08:35)
[2020-08-19] MEDS: insulin Lispro (HumaLOG) vial - multi-dose SQ SCH ×3 (08:46→21:55)
[2020-08-19 11:00] VITALS: BP 104/53
--- NOTE | 2020-08-19 15:00 | NUR ---
WAS UNABLE TO TREAT PATIENTS BLOOD GLUCOSE AT THIS TIME, WILL CONTINUE THERAPY AT DINNER.
[2020-08-19] MEDS: cyclobenzaprine 10mg tablet PO PRN (15:45)
--- NOTE | 2020-08-19 17:31 | NUR ---
PAGER ID: [phone] MESSAGE: [id number] RE: 359A CARMENZA, PATIENT DID WELL TWO DAYS IN A ROW CAN WE DC SITTER AND EMPLOY BED ALARM ONLY THANKS [facility].
--- NOTE | 2020-08-19 18:48 | NUR ---
Problems reprioritized. Patient report given, questions answered & plan of care reviewed with WANDER PENA.
[2020-08-19 20:00] VITALS: BP 103/54
[2020-08-19] MEDS: insulin glargine (Lantus) pen - multi-dose SQ SCH (21:54)
[2020-08-20] VITALS: BP 101/47
[2020-08-20 06:46] LABS: BASOPHILS % (AUTO) 0.4 % (0-1); EOSINOPHILS # (AUTO) 0.1 X10'3 (0-0.9); EOSINOPHILS % (AUTO) 1.6 % (0-6); HEMATOCRIT 40.7 % (42.0-52.0); HEMOGLOBIN 13.9 g/dl (14.0-17.9); LYMPHOCYTES # (AUTO) 0.9 X10'3 (1.1-4.8); LYMPHOCYTES % (AUTO) 10.7 % (21-51); MEAN CORPUSCULAR HEMOGLOBIN 31.2 PG (27.0-31.0); MEAN CORPUSCULAR HGB CONC 34.1 g/dL (33.0-36.5); MEAN CORPUSCULAR VOLUME 91.5 FL (78-98); MEAN PLATELET VOLUME 9.5 FL (7.4-10.4); MONOCYTES # (AUTO) 0.8 X10'3 (0-0.9); NEUTROPHILS # (AUTO) 6.8 X10'3 (1.8-7.7); NEUTROPHILS % (AUTO) 78.3 % (42-75); PLATELET COUNT 182 X10'3 (140-440); RED BLOOD COUNT 4.45 X10'6 (4.70-6.10); RED CELL DISTRIBUTION WIDTH 14.6 % (11.5-14.5); WHITE BLOOD COUNT 8.7 X10'3 (4.5-11.0)
[2020-08-20 07:00] VITALS: BP 120/97
[2020-08-20 07:23] LABS: ALANINE AMINOTRANSFERASE 56 U/L (12-78); ALBUMIN 2.9 G/DL (3.4-5.0); ALBUMIN/GLOBULIN RATIO 0.8 (1.1-1.5); ALKALINE PHOSPHATASE 77 IU/L (46-116); ANION GAP 14 (8-16); ASPARTATE AMINO TRANSFERASE 51 U/L (10-37); BILIRUBIN,TOTAL 0.4 MG/DL (0.1-1.0); BLOOD UREA NITROGEN 81 MG/DL (7-18); BUN/CREATININE RATIO 45.3 (5.4-32.0); CALCIUM 8.8 MG/DL (8.5-10.1); CHLORIDE 105 MMOL/L (99-107); CREATININE 1.79 MG/DL (0.60-1.10); GLUCOSE 143 MG/DL (70-104); MAGNESIUM 2.2 MG/DL (1.5-2.4); PHOSPHORUS 4.2 MG/DL (2.3-4.5); POTASSIUM 3.9 MMOL/L (3.5-5.1); SODIUM 140 MMOL/L (135-145); TOTAL CARBON DIOXIDE 20.7 MMOL/L (24-32); TOTAL PROTEIN 6.5 G/DL (6.4-8.2); eGFR 36 ML/MIN
[2020-08-20] MEDS: docusate sod 100mg capsule PO SCH ×2 (09:17→20:51)
[2020-08-20] MEDS: losartan 50mg tablet PO SCH (09:18)
[2020-08-20] MEDS: atorvastatin 20mg tablet PO SCH (09:18)
[2020-08-20] MEDS: amLODIPine 2.5mg tablet PO SCH (09:18)
[2020-08-20] MEDS: apixaban 2.5mg tablet PO SCH ×2 (09:19→20:51)
[2020-08-20] MEDS: clopidogrel 75mg tablet PO SCH (09:19)
[2020-08-20] MEDS: tamsulosin 0.4mg capsule PO SCH ×2 (09:19→20:51)
[2020-08-20] MEDS: atenolol 50mg tablet PO SCH (09:19)
[2020-08-20] MEDS: cyanocobalamin 500mcg tablet PO SCH (09:19)
[2020-08-20] MEDS: LIDOcaine 5% patch TP SCH (09:20)
[2020-08-20] MEDS: finasteride 5mg tablet PO SCH (09:25)
[2020-08-20] MEDS: insulin Lispro (HumaLOG) vial - multi-dose SQ SCH ×2 (10:07→20:56)
[2020-08-20 11:00] VITALS: BP 113/55
[2020-08-20] MEDS: cyclobenzaprine 10mg tablet PO PRN (13:02)
[2020-08-20 20:00] VITALS: BP 98/50
[2020-08-20] MEDS: methylnaltrexone br 12mg/0.6ml inj***SubQ only SQ SCH (20:51)
[2020-08-20] MEDS: insulin glargine (Lantus) pen - multi-dose SQ SCH (20:54)
[2020-08-21] VITALS: BP 105/56
[2020-08-21] MEDS: cyclobenzaprine 10mg tablet PO PRN ×2 (05:25→23:25)
[2020-08-21] MEDS: HYDROcodone/acetaminophen 5mg/325mg tablet PO PRN (05:50)
--- NOTE | 2020-08-21 06:37 | NUR ---
Patient in room [facility] 359. I have received report from WANDER PENA and had the opportunity to ask questions and assume patient care.
[2020-08-21 06:48] LABS: EOSINOPHILS # (AUTO) 0.2 X10'3 (0-0.9); EOSINOPHILS % (AUTO) 2.2 % (0-6); HEMOGLOBIN 13.6 g/dl (14.0-17.9); LYMPHOCYTES # (AUTO) 0.8 X10'3 (1.1-4.8); PLATELET COUNT 169 X10'3 (140-440)
[2020-08-21 06:52] LABS: BASOPHILS % (AUTO) 0.5 % (0-1); HEMATOCRIT 39.8 % (42.0-52.0); LYMPHOCYTES % (AUTO) 10.9 % (21-51); MEAN CORPUSCULAR HGB CONC 34.1 g/dL (33.0-36.5); MEAN CORPUSCULAR VOLUME 91.1 FL (78-98); MEAN PLATELET VOLUME 9.7 FL (7.4-10.4); MONOCYTES # (AUTO) 0.7 X10'3 (0-0.9); MONOCYTES % (AUTO) 10.1 % (2-12); NEUTROPHILS # (AUTO) 5.3 X10'3 (1.8-7.7); NEUTROPHILS % (AUTO) 76.3 % (42-75); RED BLOOD COUNT 4.37 X10'6 (4.70-6.10); RED CELL DISTRIBUTION WIDTH 14.4 % (11.5-14.5)
[2020-08-21 07:00] VITALS: BP 139/50
[2020-08-21 07:07] LABS: ALANINE AMINOTRANSFERASE 57 U/L (12-78); ALBUMIN 2.8 G/DL (3.4-5.0); ALBUMIN/GLOBULIN RATIO 0.8 (1.1-1.5); ALKALINE PHOSPHATASE 77 IU/L (46-116); ANION GAP 11 (8-16); ASPARTATE AMINO TRANSFERASE 40 U/L (10-37); BILIRUBIN,TOTAL 0.4 MG/DL (0.1-1.0); BLOOD UREA NITROGEN 78 MG/DL (7-18); BUN/CREATININE RATIO 46.2 (5.4-32.0); CHLORIDE 105 MMOL/L (99-107); CREATININE 1.69 MG/DL (0.60-1.10); GLUCOSE 247 MG/DL (70-104); MAGNESIUM 2.2 MG/DL (1.5-2.4); PHOSPHORUS 3.2 MG/DL (2.3-4.5); POTASSIUM 3.8 MMOL/L (3.5-5.1); SODIUM 139 MMOL/L (135-145); TOTAL CARBON DIOXIDE 23.2 MMOL/L (24-32); TOTAL PROTEIN 6.3 G/DL (6.4-8.2); eGFR 39 ML/MIN
[2020-08-21 07:19] LABS: CALCIUM 8.7 MG/DL (8.5-10.1)
[2020-08-21] MEDS: LIDOcaine 5% patch TP SCH (08:00)
[2020-08-21] MEDS: apixaban 2.5mg tablet PO SCH ×2 (09:31→21:15)
[2020-08-21] MEDS: clopidogrel 75mg tablet PO SCH (09:31)
[2020-08-21] MEDS: tamsulosin 0.4mg capsule PO SCH ×2 (09:31→21:15)
[2020-08-21] MEDS: docusate sod 100mg capsule PO SCH ×2 (09:31→21:15)
[2020-08-21] MEDS: amLODIPine 2.5mg tablet PO SCH (09:32)
[2020-08-21] MEDS: losartan 50mg tablet PO SCH (09:33)
[2020-08-21] MEDS: atorvastatin 20mg tablet PO SCH (09:33)
[2020-08-21] MEDS: cyanocobalamin 500mcg tablet PO SCH (09:34)
[2020-08-21] MEDS: atenolol 50mg tablet PO SCH (09:34)
[2020-08-21] MEDS: finasteride 5mg tablet PO SCH (09:34)
[2020-08-21] MEDS: insulin Lispro (HumaLOG) vial - multi-dose SQ SCH ×3 (09:42→19:03)
[2020-08-21 11:00] VITALS: BP 91/54
--- NOTE | 2020-08-21 11:04 | NUR ---
Reassessment: Patient's PO intake significantly improved, documented with average 75-100% PO intake with only one meal refusal since last RD assessment (08/18). Pt now receiving additional medications for back pain per MD note, likely assisting with improved PO intake. LBM 08/20. No nutrition intervention warranted at this time. Will continue to follow. Recommend: 1. continue carb controlled diet; encourage PO intake 2. send double eggs and salsa q breakfast; cottage cheese q lunch; yogurt q dinner; fruit and Mrs. Dash TID 3. routine bowel care 4. weight per rx Addendum: 08/21/20 at [address] Amended: Links added.
[2020-08-21] MEDS: dextrose ORAL solution 15 GM/59 ML bottle PO PRN ×2 (18:25→18:40)
[2020-08-21 19:00] VITALS: BP 114/50
[2020-08-21] MEDS: insulin glargine (Lantus) pen - multi-dose SQ SCH (21:07)
[2020-08-22 00:22] VITALS: BP 95/64
[2020-08-22] MEDS: HYDROcodone/acetaminophen 5mg/325mg tablet PO PRN ×2 (02:58→23:47)
--- NOTE | 2020-08-22 06:43 | NUR ---
Patient in room [facility] 359. I have received report from WANDER PENA and had the opportunity to ask questions and assume patient care.
[2020-08-22 07:00] VITALS: BP 126/76
[2020-08-22 07:17] LABS: BASOPHILS % (AUTO) 0.4 % (0-1); EOSINOPHILS # (AUTO) 0.2 X10'3 (0-0.9); EOSINOPHILS % (AUTO) 2.2 % (0-6); HEMATOCRIT 40.7 % (42.0-52.0); LYMPHOCYTES # (AUTO) 0.7 X10'3 (1.1-4.8); LYMPHOCYTES % (AUTO) 9.7 % (21-51); MEAN CORPUSCULAR HEMOGLOBIN 31.2 PG (27.0-31.0); MEAN CORPUSCULAR HGB CONC 34.3 g/dL (33.0-36.5); MEAN CORPUSCULAR VOLUME 90.8 FL (78-98); MEAN PLATELET VOLUME 9.4 FL (7.4-10.4); MONOCYTES # (AUTO) 0.7 X10'3 (0-0.9); MONOCYTES % (AUTO) 9.2 % (2-12); NEUTROPHILS # (AUTO) 5.9 X10'3 (1.8-7.7); NEUTROPHILS % (AUTO) 78.5 % (42-75); PLATELET COUNT 176 X10'3 (140-440); RED BLOOD COUNT 4.49 X10'6 (4.70-6.10); RED CELL DISTRIBUTION WIDTH 14.5 % (11.5-14.5); WHITE BLOOD COUNT 7.6 X10'3 (4.5-11.0)
[2020-08-22 08:09] LABS: ALANINE AMINOTRANSFERASE 71 U/L (12-78); ALBUMIN 2.9 G/DL (3.4-5.0); ALBUMIN/GLOBULIN RATIO 0.8 (1.1-1.5); ALKALINE PHOSPHATASE 81 IU/L (46-116); ANION GAP 10 (8-16); ASPARTATE AMINO TRANSFERASE 48 U/L (10-37); BILIRUBIN,TOTAL 0.4 MG/DL (0.1-1.0); BLOOD UREA NITROGEN 68 MG/DL (7-18); CALCIUM 8.9 MG/DL (8.5-10.1); CHLORIDE 107 MMOL/L (99-107); CREATININE 1.51 MG/DL (0.60-1.10); GLUCOSE 168 MG/DL (70-104); MAGNESIUM 2.2 MG/DL (1.5-2.4); PHOSPHORUS 3.2 MG/DL (2.3-4.5); POTASSIUM 4.3 MMOL/L (3.5-5.1); SODIUM 143 MMOL/L (135-145); TOTAL CARBON DIOXIDE 26.1 MMOL/L (24-32); TOTAL PROTEIN 6.4 G/DL (6.4-8.2); eGFR 44 ML/MIN
--- NOTE | 2020-08-22 08:12 | NUR ---
Patient in room [facility] 359. I have received report from WANDER PENA and had the opportunity to ask questions and assume patient care.
[2020-08-22] MEDS: insulin Lispro (HumaLOG) vial - multi-dose SQ SCH ×3 (08:57→19:10)
[2020-08-22] MEDS: amLODIPine 2.5mg tablet PO SCH (09:28)
[2020-08-22] MEDS: apixaban 2.5mg tablet PO SCH ×2 (09:29→21:07)
[2020-08-22] MEDS: cyanocobalamin 500mcg tablet PO SCH (09:29)
[2020-08-22] MEDS: atorvastatin 20mg tablet PO SCH (09:29)
[2020-08-22] MEDS: docusate sod 100mg capsule PO SCH ×2 (09:29→20:00)
[2020-08-22] MEDS: clopidogrel 75mg tablet PO SCH (09:30)
[2020-08-22] MEDS: tamsulosin 0.4mg capsule PO SCH ×2 (09:30→20:00)
[2020-08-22] MEDS: finasteride 5mg tablet PO SCH (09:30)
[2020-08-22] MEDS: losartan 50mg tablet PO SCH (09:30)
[2020-08-22] MEDS: atenolol 50mg tablet PO SCH (09:30)
[2020-08-22] MEDS: LIDOcaine 5% patch TP SCH (09:31)
--- NOTE | 2020-08-22 10:13 | NUR ---
PATIENT IS NON COMPLIANT WITH EVERYTHING INCLUDING, PERSONAL CARE, MEDS, AND DRESSING. HE YELLS AT STAFF WHEN THEY TRY TO PERFORM CARE. PATIENT ALSO KEEPS TAKING OFF HIS GOWN AND STATES, SOMEONE IS TAKING IT OFF ME.
[2020-08-22] MEDS: cyclobenzaprine 10mg tablet PO PRN ×2 (10:58→23:43)
[2020-08-22 11:00] VITALS: BP 98/46
--- NOTE | 2020-08-22 14:41 | NUR ---
DM Consult: Addressed; see prior RODNEY note. Addendum: 08/22/20 at [address] Amended: Links added.
--- NOTE | 2020-08-22 14:45 | NUR ---
ENCOURAGED PATIENT TO EAT HE JUST KEEPS SAYING HE WILL AND HE WILL NOT SET UP AND EAT. NON COMPLIANT WITH PHYSICAL THERAPY.
--- NOTE | 2020-08-22 17:53 | NUR ---
Problems reprioritized. Patient report given, questions answered & plan of care reviewed with AJIT PENA.
--- NOTE | 2020-08-22 18:30 | NUR ---
Patient in room [facility] 356. I have received report from SATNAM and had the opportunity to ask questions and assume patient care. PT REFUSING VITALS, DINNER AND ASSESSMENT AT THIS TIME. PT WANTS TO "SLEEP" WILL ATTEMPT AT A LATER TIME.
[2020-08-22] MEDS: methylnaltrexone br 12mg/0.6ml inj***SubQ only SQ SCH (20:00)
[2020-08-22] MEDS: insulin glargine (Lantus) pen - multi-dose SQ SCH (21:11)
[2020-08-23] VITALS: BP 114/62
--- NOTE | 2020-08-23 06:30 | NUR ---
Patient in room [facility] 356. I have received report from Judy PENA and had the opportunity to ask questions and assume patient care.
[2020-08-23 06:49] LABS: BASOPHILS % (AUTO) 0.5 % (0-1); EOSINOPHILS # (AUTO) 0.2 X10'3 (0-0.9); EOSINOPHILS % (AUTO) 2.1 % (0-6); HEMATOCRIT 40.7 % (42.0-52.0); HEMOGLOBIN 13.9 g/dl (14.0-17.9); LYMPHOCYTES # (AUTO) 0.7 X10'3 (1.1-4.8); LYMPHOCYTES % (AUTO) 9.7 % (21-51); MEAN CORPUSCULAR HEMOGLOBIN 30.9 PG (27.0-31.0); MEAN CORPUSCULAR HGB CONC 34.2 g/dL (33.0-36.5); MEAN CORPUSCULAR VOLUME 90.3 FL (78-98); MEAN PLATELET VOLUME 9.3 FL (7.4-10.4); MONOCYTES # (AUTO) 0.7 X10'3 (0-0.9); MONOCYTES % (AUTO) 9.7 % (2-12); NEUTROPHILS # (AUTO) 5.9 X10'3 (1.8-7.7); PLATELET COUNT 171 X10'3 (140-440); RED BLOOD COUNT 4.51 X10'6 (4.70-6.10); RED CELL DISTRIBUTION WIDTH 14.5 % (11.5-14.5); WHITE BLOOD COUNT 7.5 X10'3 (4.5-11.0)
[2020-08-23 07:00] VITALS: BP 158/71
[2020-08-23 07:00] LABS: ALANINE AMINOTRANSFERASE 55 U/L (12-78); ALBUMIN 2.9 G/DL (3.4-5.0); ALBUMIN/GLOBULIN RATIO 0.9 (1.1-1.5); ALKALINE PHOSPHATASE 84 IU/L (46-116); ANION GAP 9 (8-16); ASPARTATE AMINO TRANSFERASE 37 U/L (10-37); BILIRUBIN,TOTAL 0.3 MG/DL (0.1-1.0); BLOOD UREA NITROGEN 57 MG/DL (7-18); BUN/CREATININE RATIO 40.7 (5.4-32.0); CALCIUM 8.9 MG/DL (8.5-10.1); CHLORIDE 107 MMOL/L (99-107); GLUCOSE 219 MG/DL (70-104); MAGNESIUM 2.2 MG/DL (1.5-2.4); POTASSIUM 4.2 MMOL/L (3.5-5.1); SODIUM 141 MMOL/L (135-145); TOTAL CARBON DIOXIDE 24.8 MMOL/L (24-32); TOTAL PROTEIN 6.3 G/DL (6.4-8.2); eGFR 48 ML/MIN
[2020-08-23] MEDS: amLODIPine 2.5mg tablet PO SCH ×2 (08:00→09:02)
[2020-08-23] MEDS: losartan 50mg tablet PO SCH ×2 (08:00→09:02)
[2020-08-23] MEDS: atenolol 50mg tablet PO SCH ×2 (08:00→09:02)
[2020-08-23] MEDS: tamsulosin 0.4mg capsule PO SCH ×3 (09:02→20:52)
[2020-08-23] MEDS: cyanocobalamin 500mcg tablet PO SCH ×2 (09:02→11:48)
[2020-08-23] MEDS: atorvastatin 20mg tablet PO SCH ×2 (09:02→11:47)
[2020-08-23] MEDS: clopidogrel 75mg tablet PO SCH ×2 (09:02→11:47)
[2020-08-23] MEDS: LIDOcaine 5% patch TP SCH ×2 (09:02→11:47)
[2020-08-23] MEDS: finasteride 5mg tablet PO SCH (09:02)
[2020-08-23] MEDS: apixaban 2.5mg tablet PO SCH ×3 (09:02→20:53)
[2020-08-23] MEDS: docusate sod 100mg capsule PO SCH ×3 (09:02→20:52)
--- NOTE | 2020-08-23 09:02 | NUR ---
Patient refused to eat breakfast and his morning medications. He asked me to leave him alone as he does not get to sleep until 5 am.
[2020-08-23 11:00] VITALS: BP 155/103
[2020-08-23] MEDS: cyclobenzaprine 10mg tablet PO PRN ×2 (11:47→20:53)
[2020-08-23] MEDS: HYDROcodone/acetaminophen 5mg/325mg tablet PO PRN ×2 (11:48→20:53)
--- NOTE | 2020-08-23 15:02 | NUR ---
Patient has been refusing insulin and some of his meds.
--- NOTE | 2020-08-23 18:17 | NUR ---
Problems reprioritized. Patient report given, questions answered & plan of care reviewed with Judy PENA.
--- NOTE | 2020-08-23 18:30 | NUR ---
Patient in room [facility] 356. [facility] and had the opportunity to ask questions and assume patient care.
[2020-08-23 19:00] VITALS: BP 90/50
[2020-08-23] MEDS: insulin Lispro (HumaLOG) vial - multi-dose SQ SCH ×2 (19:08→20:50)
[2020-08-23] MEDS: insulin glargine (Lantus) pen - multi-dose SQ SCH (20:51)
[2020-08-24] MEDS: HYDROcodone/acetaminophen 5mg/325mg tablet PO PRN (03:09)
--- NOTE | 2020-08-24 06:24 | NUR ---
Problems reprioritized. Patient report given, questions answered & plan of care reviewed with SATNAM.
--- NOTE | 2020-08-24 06:26 | NUR ---
Patient in room [facility] 356. I have received report from AJIT PENA and had the opportunity to ask questions and assume patient care.
[2020-08-24 07:11] LABS: BASOPHILS % (AUTO) 0.4 % (0-1); EOSINOPHILS # (AUTO) 0.2 X10'3 (0-0.9); EOSINOPHILS % (AUTO) 2.2 % (0-6); HEMOGLOBIN 13.9 g/dl (14.0-17.9); LYMPHOCYTES # (AUTO) 0.9 X10'3 (1.1-4.8); LYMPHOCYTES % (AUTO) 11.9 % (21-51); MEAN CORPUSCULAR HEMOGLOBIN 30.2 PG (27.0-31.0); MEAN CORPUSCULAR VOLUME 91.5 FL (78-98); MEAN PLATELET VOLUME 9.4 FL (7.4-10.4); MONOCYTES # (AUTO) 0.7 X10'3 (0-0.9); MONOCYTES % (AUTO) 9.9 % (2-12); NEUTROPHILS # (AUTO) 5.6 X10'3 (1.8-7.7); NEUTROPHILS % (AUTO) 75.6 % (42-75); PLATELET COUNT 181 X10'3 (140-440); RED BLOOD COUNT 4.59 X10'6 (4.70-6.10); RED CELL DISTRIBUTION WIDTH 14.3 % (11.5-14.5); WHITE BLOOD COUNT 7.5 X10'3 (4.5-11.0)
[2020-08-24 07:22] LABS: ALANINE AMINOTRANSFERASE 64 U/L (12-78); ALBUMIN 2.9 G/DL (3.4-5.0); ALBUMIN/GLOBULIN RATIO 0.8 (1.1-1.5); ALKALINE PHOSPHATASE 84 IU/L (46-116); ANION GAP 9 (8-16); ASPARTATE AMINO TRANSFERASE 34 U/L (10-37); BILIRUBIN,TOTAL 0.4 MG/DL (0.1-1.0); BLOOD UREA NITROGEN 60 MG/DL (7-18); BUN/CREATININE RATIO 34.5 (5.4-32.0); CALCIUM 8.9 MG/DL (8.5-10.1); CHLORIDE 107 MMOL/L (99-107); CREATININE 1.74 MG/DL (0.60-1.10); GLUCOSE 102 MG/DL (70-104); MAGNESIUM 2.2 MG/DL (1.5-2.4); PHOSPHORUS 3.9 MG/DL (2.3-4.5); POTASSIUM 4.2 MMOL/L (3.5-5.1); SODIUM 141 MMOL/L (135-145); TOTAL CARBON DIOXIDE 24.9 MMOL/L (24-32); TOTAL PROTEIN 6.4 G/DL (6.4-8.2); eGFR 37 ML/MIN
[2020-08-24 07:25] VITALS: BP 120/62
[2020-08-24] MEDS: LIDOcaine 5% patch TP SCH (08:17)
[2020-08-24] MEDS: losartan 50mg tablet PO SCH (08:18)
[2020-08-24] MEDS: atorvastatin 20mg tablet PO SCH (08:18)
[2020-08-24] MEDS: clopidogrel 75mg tablet PO SCH (08:18)
[2020-08-24] MEDS: atenolol 50mg tablet PO SCH (08:18)
[2020-08-24] MEDS: docusate sod 100mg capsule PO SCH ×2 (08:18→21:02)
[2020-08-24] MEDS: apixaban 2.5mg tablet PO SCH ×2 (08:19→21:02)
[2020-08-24] MEDS: tamsulosin 0.4mg capsule PO SCH ×2 (08:19→21:02)
[2020-08-24] MEDS: cyanocobalamin 500mcg tablet PO SCH (08:19)
[2020-08-24] MEDS: amLODIPine 2.5mg tablet PO SCH (08:19)
[2020-08-24] MEDS: finasteride 5mg tablet PO SCH (09:04)
--- NOTE | 2020-08-24 10:35 | NUR ---
FAMILY CALLED REGARDING PATIENT'S CARE.
[2020-08-24 11:00] VITALS: BP 108/60
--- NOTE | 2020-08-24 13:58 | NUR ---
DAUGHTER CALLED SPOKE WITH HER FOR 15 MINUTES. SHE INSISTS WE MAKE SURE HE KNOWS THAT HE WILL BE SENT TO REHAB IF HE DOESN'T GET UP AND WALK.
[2020-08-24] MEDS: cyclobenzaprine 10mg tablet PO PRN (15:49)
--- NOTE | 2020-08-24 18:41 | NUR ---
Problems reprioritized. Patient report given, questions answered & plan of care reviewed with SEJAL POST RN.
--- NOTE | 2020-08-24 18:45 | NUR ---
Patient in room [facility] 356. I have received report from SATNAM PENA and had the opportunity to ask questions and assume patient care.
[2020-08-24] MEDS: insulin Lispro (HumaLOG) vial - multi-dose SQ SCH (19:29)
[2020-08-24 20:00] VITALS: BP 122/66
[2020-08-24] MEDS: methylnaltrexone br 12mg/0.6ml inj***SubQ only SQ SCH ×2 (21:02→21:12)
[2020-08-24] MEDS: insulin glargine (Lantus) pen - multi-dose SQ SCH (21:54)
[2020-08-25] VITALS: BP 96/45
[2020-08-25] MEDS: HYDROcodone/acetaminophen 5mg/325mg tablet PO PRN (00:02)
--- NOTE | 2020-08-25 06:30 | NUR ---
Problems reprioritized. Patient report given, questions answered & plan of care reviewed with LUIS PENA.
--- NOTE | 2020-08-25 06:58 | NUR ---
Patient in room [facility]YLA 356B. I have received report from SEJAL POST RN and had the opportunity to ask questions and assume patient care.
[2020-08-25 07:00] VITALS: BP 118/64
[2020-08-25] MEDS: atenolol 50mg tablet PO SCH (08:00)
[2020-08-25] MEDS: amLODIPine 2.5mg tablet PO SCH (08:00)
[2020-08-25] MEDS: losartan 50mg tablet PO SCH (08:00)
[2020-08-25] MEDS: apixaban 2.5mg tablet PO SCH ×2 (09:13→19:40)
[2020-08-25] MEDS: finasteride 5mg tablet PO SCH (09:13)
[2020-08-25] MEDS: cyclobenzaprine 10mg tablet PO PRN (09:13)
[2020-08-25] MEDS: LIDOcaine 5% patch TP SCH (09:13)
[2020-08-25] MEDS: cyanocobalamin 500mcg tablet PO SCH (09:13)
[2020-08-25] MEDS: tamsulosin 0.4mg capsule PO SCH ×2 (09:14→19:40)
[2020-08-25] MEDS: clopidogrel 75mg tablet PO SCH (09:14)
[2020-08-25] MEDS: atorvastatin 20mg tablet PO SCH (09:14)
[2020-08-25] MEDS: docusate sod 100mg capsule PO SCH ×2 (09:14→19:40)
[2020-08-25 11:00] VITALS: BP 94/40
[2020-08-25] MEDS: acetaminophen 325mg tablet PO PRN ×2 (11:00→19:44)
--- NOTE | 2020-08-25 18:34 | NUR ---
Problems reprioritized. Patient report given, questions answered & plan of care reviewed with SEJAL POST RN.
--- NOTE | 2020-08-25 18:35 | NUR ---
Patient in room [facility] 356. I have received report from LUIS PENA and had the opportunity to ask questions and assume patient care.
[2020-08-25] MEDS: insulin Lispro (HumaLOG) vial - multi-dose SQ SCH ×2 (19:34→21:48)
[2020-08-25] MEDS: cyclobenzaprine 10mg tablet PO SCH (19:40)
[2020-08-25 21:00] VITALS: BP 98/52
[2020-08-25] MEDS: insulin glargine (Lantus) pen - multi-dose SQ SCH (21:46)
[2020-08-26] VITALS: BP 134/59
[2020-08-26] MEDS: cyclobenzaprine 10mg tablet PO SCH ×3 (04:00→17:31)
[2020-08-26] MEDS: dextrose ORAL solution 15 GM/59 ML bottle PO PRN (07:10)
[2020-08-26] MEDS: tamsulosin 0.4mg capsule PO SCH ×2 (07:24→19:18)
[2020-08-26] MEDS: docusate sod 100mg capsule PO SCH ×2 (07:24→19:18)
[2020-08-26] MEDS: apixaban 2.5mg tablet PO SCH ×2 (07:24→19:18)
[2020-08-26] MEDS: atorvastatin 20mg tablet PO SCH (07:27)
[2020-08-26] MEDS: atenolol 50mg tablet PO SCH (07:27)
[2020-08-26] MEDS: clopidogrel 75mg tablet PO SCH (07:27)
[2020-08-26] MEDS: cyanocobalamin 500mcg tablet PO SCH (07:27)
[2020-08-26] MEDS: finasteride 5mg tablet PO SCH (07:28)
[2020-08-26] MEDS: LIDOcaine 5% patch TP SCH (07:33)
[2020-08-26 08:00] VITALS: BP 143/56
[2020-08-26 12:00] VITALS: BP 123/57
--- NOTE | 2020-08-26 14:01 | NUR ---
F/u 08/26: Pt PO fluctuates currently ~50-75% avg meals this AM and 08/25; PO for 08/24 not documented in EMR. Noted pt refused 4 meals 08/22 AM to 08/23 AM but also was refusing most things including meds at that time as well per EMR. LBM 08/20 receiving routine colace w/ relistor ordered but pt refused today and has PRN MoM ordered but last given in July. Will send power puddings WS for additional bowel care needs. Will continue to monitor for PO tolerance and additional bowel care needs. Recommend: 1. continue carb controlled diet; encourage PO intake 2. send double eggs and salsa q breakfast; cottage cheese q lunch; yogurt q dinner; fruit and Mrs. Dash TID 3. routine bowel care; power pudding WS 4. weights per rx Addendum: 08/26/20 at [address] Amended: Links added.
[2020-08-26] MEDS: insulin Lispro (HumaLOG) vial - multi-dose SQ SCH ×2 (14:31→19:12)
--- NOTE | 2020-08-26 18:30 | NUR ---
Patient in room [facility] 356. I have received report from Kingston PENA and had the opportunity to ask questions and assume patient care.
--- NOTE | 2020-08-26 18:33 | NUR ---
Problems reprioritized. Patient report given, questions answered & plan of care reviewed with RAFAELA PENA.
[2020-08-26] MEDS: methylnaltrexone br 12mg/0.6ml inj***SubQ only SQ SCH (19:19)
[2020-08-26 20:00] VITALS: BP 138/67
[2020-08-26] MEDS: insulin glargine (Lantus) pen - multi-dose SQ SCH (20:48)
[2020-08-27] VITALS: BP 123/74
[2020-08-27] MEDS: cyclobenzaprine 10mg tablet PO SCH ×3 (00:36→16:17)
--- NOTE | 2020-08-27 06:38 | NUR ---
Problems reprioritized. Patient report given, questions answered & plan of care reviewed with Luisa PENA.
[2020-08-27] MEDS: atorvastatin 20mg tablet PO SCH (07:39)
[2020-08-27] MEDS: docusate sod 100mg capsule PO SCH (07:39)
[2020-08-27] MEDS: apixaban 2.5mg tablet PO SCH (07:39)
[2020-08-27] MEDS: clopidogrel 75mg tablet PO SCH (07:39)
[2020-08-27] MEDS: tamsulosin 0.4mg capsule PO SCH (07:39)
[2020-08-27] MEDS: cyanocobalamin 500mcg tablet PO SCH (07:40)
[2020-08-27] MEDS: atenolol 50mg tablet PO SCH (07:40)
[2020-08-27] MEDS: finasteride 5mg tablet PO SCH (07:40)
[2020-08-27] MEDS: LIDOcaine 5% patch TP SCH (07:41)
[2020-08-27 08:00] VITALS: BP 108/69
[2020-08-27] MEDS: insulin Lispro (HumaLOG) vial - multi-dose SQ SCH ×2 (09:53→14:18)
[2020-08-27 11:00] VITALS: BP 142/64
[2020-08-27] MEDS: magnesium hydroxide 30ml (MOM) UD suspension PO PRN (12:04)
--- NOTE | 2020-08-27 15:56 | NUR ---
PAGER ID: [phone] MESSAGE: [facility] [id number] Pt: Puneet Rm: 356-B. Pt last BM 7days ago. wont take him until pt have a BM. gave MOM without result. can I get an order for a suppository or enema pls? thanks
[2020-08-27] MEDS ORDERED: mineral oil 133ml enema RC PRN (16:00)
[2020-08-27] MEDS ORDERED: bisacodyl 10mg suppository rectal RC STA (16:45)
[2020-08-27] MEDS ORDERED: bisacodyl 10mg suppository rectal RC PRN (16:45)
[2020-08-27] MEDS ORDERED: polyethylene glycol 3350 17gm powd pack PO SCH ×2 (16:45→16:50)
[2020-08-27] MEDS ORDERED: magnesium citrate 296ml oral solution PO ONE (16:45)
[2020-08-27] MEDS ORDERED: lactulose 20gm/30ml cup PO SCH (16:45)
[2020-08-27] MEDS ORDERED: sennosides/docusate sodium tablet PO SCH (16:45)
--- NOTE | 2020-08-27 18:17 | NUR ---
Pt had a large BM after multiple laxative tx. Called to notify to arrange transportation. Report given to Martín.
--- NOTE | 2020-08-27 18:40 | NUR ---
Patient in room [facility] 356. I have received report from Luisa PENA and had the opportunity to ask questions and assume patient care. In report told patient is discharged and awaiting transportation to facility.
--- NOTE | 2020-08-27 18:56 | NUR ---
Problems reprioritized. Patient report given, questions answered & plan of care reviewed with JEAN Yoder. Pt has been D/C'd. waiting on transport.
--- NOTE | 2020-08-27 20:12 | NUR ---
[facility] picked [facility] patient to [facility]. Patient sent with all belongings and prescription of Percocet that patient came in with was sent with patient.
== END 2020-08-27 20:00 | DRG 553 ==
LOC: ER 15:44 → ED HOLD 20:33 → SUR 3N 08-12 02:50
PROVIDERS: ADMIT Internal Medicine; ATTEND Family Medicine
DX: M19.09 Primary osteoarthritis, other specified site (principal); G93.41 Metabolic encephalopathy; F05 Delirium due to known physiological condition; F03.91 Unspecified dementia, unspecified severity, with behavioral disturbance; N17.9 Acute kidney failure, unspecified; M48.061 Spinal stenosis, lumbar region without neurogenic claudication; E78.5 Hyperlipidemia, unspecified; E11.22 Type 2 diabetes mellitus with diabetic chronic kidney disease; E11.65 Type 2 diabetes mellitus with hyperglycemia; E86.0 Dehydration; G89.29 Other chronic pain; I12.9 Hypertensive chronic kidney disease with stage 1 through stage 4 chronic kidney disease, or unspecified chronic kidney disease; M54.5 Low back pain; I25.10 Atherosclerotic heart disease of native coronary artery without angina pectoris; I48.91 Unspecified atrial fibrillation; K59.00 Constipation, unspecified; N18.30 Chronic kidney disease, stage 3 unspecified; N40.0 Benign prostatic hyperplasia without lower urinary tract symptoms; Z79.01 Long term (current) use of anticoagulants; Z86.711 Personal history of pulmonary embolism; Z95.5 Presence of coronary angioplasty implant and graft; Z98.42 Cataract extraction status, left eye; Z98.41 Cataract extraction status, right eye; Z91.013 Allergy to seafood; Z79.899 Other long term (current) drug therapy; Z79.4 Long term (current) use of insulin; I95.9 Hypotension, unspecified; Z79.02 Long term (current) use of antithrombotics/antiplatelets
CPT/HCPCS: 36415; 70450; 72131; 74018; 74176; 80053; 81003; 82140; 82948; 83036; 83605; 83735; 83880; 84100; 85025; 85610; 87040; 87081; 96374; 97110; 97112; 97116; 97161; 97530; 99285; G0378; J1815; J2212; J2270; J2405; J7030

== ENCOUNTER 2020-10-08 11:32 | Emergency (ER) | payer MEDICARE, OTHER ==
[~2020-10-08] VITALS: Ht 188 cm; Wt 102.3 kg
[~2020-10-08 11:32] MED LIST changes: -ACET-890 PO; +ALTERIL PO; +AMLO2.5T2 PO; +APIX2.5T PO; +ATEN1TAB4 PO; +ATOR40TA PO; +CHOL400T57 PO; -CITA20TA28 PO; +CLOP75TA15 PO; +CYAN250010 PO; -DOCU-28 PO; -ENOX100S3 SUBCUT; -FAMO40TA73 PO; -FENO135C3 PO; -FINA1TAB11 PO; +FINA5TAB11 PO; +FLO0.4C PO; +HUM7525 SQ; -IBUP100T33 PO; +INSU100I25 SQ; -LISI-222 PO; +LOSA25TA96 PO; -METF500T PO; -MONT10TA21 PO; -OMEP-84 PO; -PIOG30TA2 PO; -QUET-1 PO; -WARF10TA50 PO
[2020-10-08] MEDS ORDERED: dextrose 50%-water 50ml dispensing syringe IV ONE (11:50)
[2020-10-08 12:31] LABS: BASOPHILS % (AUTO) 0.4 % (0-1); EOSINOPHILS % (AUTO) 0.4 % (0-6); HEMATOCRIT 36.8 % (42.0-52.0); HEMOGLOBIN 12.4 g/dl (14.0-17.9); LYMPHOCYTES # (AUTO) 0.5 X10'3 (1.1-4.8); LYMPHOCYTES % (AUTO) 5.8 % (21-51); MEAN CORPUSCULAR HEMOGLOBIN 30.3 PG (27.0-31.0); MEAN CORPUSCULAR HGB CONC 33.6 g/dL (33.0-36.5); MEAN CORPUSCULAR VOLUME 90.3 FL (78-98); MEAN PLATELET VOLUME 8.1 FL (7.4-10.4); MONOCYTES # (AUTO) 0.6 X10'3 (0-0.9); MONOCYTES % (AUTO) 6.8 % (2-12); NEUTROPHILS # (AUTO) 7.8 X10'3 (1.8-7.7); NEUTROPHILS % (AUTO) 86.6 % (42-75); PLATELET COUNT 235 X10'3 (140-440); RED BLOOD COUNT 4.08 X10'6 (4.70-6.10); RED CELL DISTRIBUTION WIDTH 15.4 % (11.5-14.5); WHITE BLOOD COUNT 9.1 X10'3 (4.5-11.0)
[2020-10-08 12:50] LABS: ALANINE AMINOTRANSFERASE 47 U/L (12-78); ALBUMIN 2.4 G/DL (3.4-5.0); ALBUMIN/GLOBULIN RATIO 0.7 (1.1-1.5); ALKALINE PHOSPHATASE 77 IU/L (46-116); ANION GAP 9 (8-16); ASPARTATE AMINO TRANSFERASE 38 U/L (10-37); BILIRUBIN,TOTAL 0.3 MG/DL (0.1-1.0); BLOOD UREA NITROGEN 53 MG/DL (7-18); BUN/CREATININE RATIO 34.2 (5.4-32.0); CALCIUM 8.2 MG/DL (8.5-10.1); CHLORIDE 106 MMOL/L (99-107); CREATININE 1.55 MG/DL (0.60-1.10); GLUCOSE 178 MG/DL (70-104); POTASSIUM 3.6 MMOL/L (3.5-5.1); SODIUM 141 MMOL/L (135-145); TOTAL CARBON DIOXIDE 25.7 MMOL/L (24-32); TOTAL PROTEIN 5.9 G/DL (6.4-8.2); eGFR 43 ML/MIN
[2020-10-08] MEDS ORDERED: acetaminophen 325mg tablet PO ONE (12:50)
[2020-10-08] MEDS ORDERED: HYDROcodone/acetaminophen 10/325mg tab PO ONE (13:05)
--- NOTE | 2020-10-08 13:30 | NUR ---
DC ready; [facility] not able to transport home until 1500. Caregiver at bedside. Will continue to monitor.
[2020-10-08 15:45] VITALS: BP 90/57
== END 2020-10-08 16:03 | disposition home or self-care (01) ==
LOC: ER 11:32
DX: E11.649 Type 2 diabetes mellitus with hypoglycemia without coma (principal); R41.82 Altered mental status, unspecified; G89.29 Other chronic pain; Z98.890 Other specified postprocedural states; Z79.01 Long term (current) use of anticoagulants; Z79.899 Other long term (current) drug therapy; Z79.4 Long term (current) use of insulin
CPT/HCPCS: 36415; 80053; 82948; 85025; 96374; 99283; 99285

== ENCOUNTER 2021-09-23 14:20 | Emergency (ER) | payer MEDICARE, OTHER ==
[~2021-09-23] VITALS: Ht 188 cm; Wt 102.3 kg
[2021-09-23 15:21] LABS: BASOPHILS % (AUTO) 0.4 % (0-1); EOSINOPHILS # (AUTO) 0.3 X10'3 (0-0.9); EOSINOPHILS % (AUTO) 3.5 % (0-6); HEMATOCRIT 38.7 % (42.0-52.0); HEMOGLOBIN 12.7 g/dl (14.0-17.9); LYMPHOCYTES # (AUTO) 0.7 X10'3 (1.1-4.8); LYMPHOCYTES % (AUTO) 9.8 % (21-51); MEAN CORPUSCULAR HEMOGLOBIN 30.4 PG (27.0-31.0); MEAN CORPUSCULAR HGB CONC 32.9 g/dL (33.0-36.5); MEAN CORPUSCULAR VOLUME 92.3 FL (78-98); MEAN PLATELET VOLUME 8.3 FL (7.4-10.4); MONOCYTES # (AUTO) 0.9 X10'3 (0-0.9); MONOCYTES % (AUTO) 12.3 % (2-12); NEUTROPHILS # (AUTO) 5.3 X10'3 (1.8-7.7); PLATELET COUNT 151 X10'3 (140-440); RED BLOOD COUNT 4.19 X10'6 (4.70-6.10); WHITE BLOOD COUNT 7.2 X10'3 (4.5-11.0)
--- NOTE | 2021-09-23 15:30 | NUR ---
CAREGIVER OF THE PT CALLED, LEFT HER NUMBER TO MEET AT THE FRONT ENTRANCE OF THE ER TO GIVE PAPERS AND RELAY INFORMATION ABOUT THE PT. TECH CALLED TWICE, BUT CAREGIVER DID NOT ANSWER.
[2021-09-23 15:41] LABS: ALANINE AMINOTRANSFERASE 32 U/L (12-78); ALBUMIN 3.4 G/DL (3.4-5.0); ALKALINE PHOSPHATASE 91 IU/L (46-116); ANION GAP 5 (8-16); ASPARTATE AMINO TRANSFERASE 21 U/L (10-37); BILIRUBIN,TOTAL 0.3 MG/DL (0.1-1.0); BLOOD UREA NITROGEN 20 MG/DL (7-18); BUN/CREATININE RATIO 17.9 (5.4-32.0); CALCIUM 8.7 MG/DL (8.5-10.1); CHLORIDE 106 MMOL/L (99-107); CREATININE 1.12 MG/DL (0.60-1.10); GLUCOSE 107 MG/DL (70-104); POTASSIUM 4.1 MMOL/L (3.5-5.1); SODIUM 139 MMOL/L (135-145); TOTAL PROTEIN 6.7 G/DL (6.4-8.2); eGFR 62 ML/MIN
[2021-09-23] MEDS ORDERED: dexamethasone 4mg tablet PO ONE (15:55)
[2021-09-23] MEDS ORDERED: acetaminophen 325mg tablet PO ONE (15:55)
[2021-09-23] MEDS ORDERED: DEXA6TAB6 PO (15:58)
[2021-09-23 16:00] VITALS: BP 135/67
[2021-09-23] MEDS ORDERED: F PO ONE (16:00)
--- NOTE | 2021-09-23 16:03 | NUR ---
[facility] FOR TRANSPORT PER CAREGIVER
== END 2021-09-23 19:29 | disposition home or self-care (01) ==
LOC: ER 14:20
DX: U07.1 COVID-19 (principal); R05.9 Cough, unspecified; R09.89 Other specified symptoms and signs involving the circulatory and respiratory systems; E11.9 Type 2 diabetes mellitus without complications; G89.29 Other chronic pain; Z98.890 Other specified postprocedural states; Z79.899 Other long term (current) drug therapy
CPT/HCPCS: 36415; 71045; 80053; 83605; 83880; 85025; 87040; 87635; 93005; 99285; C9803; J8540